=== PATIENT | female | born 1960 | race Caucasian/White ===

== ENCOUNTER → 2016-12-13 | Outpatient (CLI) | payer BC ==
--- NOTE | 2016-12-14 08:27 | MM ---
Reason for exam: screening (asymptomatic). Last mammogram was performed 1 year and 1 month ago. History: Patient is postmenopausal. Benign MG stereo VAD BX LT of the left breast, September 20, 2014. Took estrogen for 6 years. Took progesterone for 6 years. Physical Findings: A clinical breast exam by your physician is recommended on an annual basis and results should be correlated with mammographic findings. MG Screening Mammo w CAD Bilateral CC and MLO view(s) were taken. Prior study comparison: November 12, 2015, bilateral MG diagnostic mammo w CAD [facility]. September 11, 2014, left breast MG work up mamm w CAD LT. The breast tissue is heterogeneously dense. This may lower the sensitivity of mammography. Stable benign calcicications in the right breast. Previous mammotome biopsy in the left breast. No significant changes when compared with prior studies. ASSESSMENT: Benign, BI-RAD 2 RECOMMENDATION: Routine screening mammogram of both breasts in 1 year.
== END | disposition home or self-care (01) ==
LOC: RADMAMWWP 07:12
PROVIDERS: ATTEND Obstetrics & Gynecology
DX: Z12.31 Encounter for screening mammogram for malignant neoplasm of breast (principal)

== ENCOUNTER → 2018-01-13 | Outpatient (CLI) | payer BC ==
--- NOTE | 2018-01-17 08:46 | MM ---
Reason for exam: screening (asymptomatic). Last mammogram was performed 1 year and 1 month ago. History: Patient is postmenopausal. Benign MG stereo VAD BX LT of the left breast, September 20, 2014. Took estrogen for 6 years. Took progesterone for 6 years. Physical Findings: A clinical breast exam by your physician is recommended on an annual basis and results should be correlated with mammographic findings. MG Screening Mammo w CAD Bilateral CC and MLO view(s) were taken. Prior study comparison: December 13, 2016, bilateral MG screening mammo w CAD. November 12, 2015, bilateral MG diagnostic mammo w CAD [facility]. The breast tissue is heterogeneously dense. This may lower the sensitivity of mammography. Previous mammotome biopsy in the left breast. No significant changes when compared with prior studies. ASSESSMENT: Negative, BI-RAD 1 RECOMMENDATION: Routine screening mammogram of both breasts in 1 year.
== END | disposition home or self-care (01) ==
LOC: RADMAMWWP 07:14
PROVIDERS: ATTEND Obstetrics & Gynecology
DX: Z12.31 Encounter for screening mammogram for malignant neoplasm of breast (principal)
CPT/HCPCS: 77067

== ENCOUNTER → 2019-01-17 | Outpatient (CLI) | payer BC ==
--- NOTE | 2019-01-18 08:48 | MM ---
Reason for exam: screening (asymptomatic). Last mammogram was performed 1 year ago. History: Patient is postmenopausal. Benign MG stereo VAD BX LT of the left breast, September 20, 2014. Took estrogen for 6 years. Took progesterone for 6 years. Physical Findings: A clinical breast exam by your physician is recommended on an annual basis and results should be correlated with mammographic findings. MG Screening Mammo w CAD Bilateral CC and MLO view(s) were taken. Prior study comparison: January 13, 2018, bilateral MG screening mammo w CAD. December 13, 2016, bilateral MG screening mammo w CAD. The breast tissue is heterogeneously dense. This may lower the sensitivity of mammography. Stable benign calcifications. There is no discrete abnormality. No significant changes when compared with prior studies. ASSESSMENT: Benign, BI-RAD 2 RECOMMENDATION: Routine screening mammogram of both breasts in 1 year.
== END | disposition home or self-care (01) ==
LOC: RADMAMWWP 06:55
PROVIDERS: ATTEND Obstetrics & Gynecology
DX: Z12.31 Encounter for screening mammogram for malignant neoplasm of breast (principal)
CPT/HCPCS: 77067

== ENCOUNTER → 2020-04-29 | Outpatient (CLI) | payer BC ==
--- NOTE | 2020-05-05 11:43 | MM ---
Reason for exam: screening (asymptomatic). Last mammogram was performed 1 year and 3 months ago. History: Patient is postmenopausal. Benign MG stereo VAD BX LT of the left breast, September 20, 2014. Took estrogen for 6 years. Took progesterone for 6 years. Physical Findings: A clinical breast exam by your physician is recommended on an annual basis and results should be correlated with mammographic findings. MG Screening Mammo w CAD Bilateral CC and MLO view(s) were taken. Prior study comparison: January 17, 2019, bilateral MG screening mammo w CAD. January 13, 2018, bilateral MG screening mammo w CAD. The breast tissue is extremely dense which could obscure a lesion on mammography. Previous mammotome biopsy in the left breast. No significant changes when compared with prior studies. ASSESSMENT: Benign, BI-RAD 2 RECOMMENDATION: Routine screening mammogram of both breasts in 1 year.
== END | disposition home or self-care (01) ==
LOC: RADMAMWWP 07:12
PROVIDERS: ATTEND Obstetrics & Gynecology
DX: Z12.31 Encounter for screening mammogram for malignant neoplasm of breast (principal)
CPT/HCPCS: 77067

== ENCOUNTER 2020-11-11 07:16 | Day surgery (SDC) | payer BC ==
[2020-11-07 11:34] VITALS: BMI 22.4
[~2020-11-11 07:16] MED LIST: LACTATED RINGERS 1,000 ML IV SCH
[2020-11-11 07:38] VITALS: TEMP 97.3
[2020-11-11 07:45] LABS: Glucose,Whole Blood 116 mg/dL (75-99)
[2020-11-11] MEDS ORDERED: LIDOCAINE 1% INJ 10MG/ML (20 ML MDV) ONE (08:07)
[2020-11-11] MEDS ORDERED: PROPOFOL 10 MG/ML 20 ML VIAL IV ONE (08:07)
--- NOTE | 2020-11-11 08:12 | P.GSHP ---
History of Present Illness H&P Date: 11/11/20 Chief Complaint: Cancer screening Patient here today for colonoscopy. Last colonoscopy 7 years ago. That study was normal. No bowel complaints. No family history of colon cancer. Past Medical History Past Medical History: Coronary Artery Disease (CAD), Diabetes Mellitus, Hyperlipidemia, Hypertension Additional Past Medical History / Comment(s): Crestor caused liver and kidney failure. History of Any Multi-Drug Resistant Organisms: None Reported Past Surgical History: Breast Surgery, Coronary Bypass/CABG, Heart Catheterization, Hysterectomy Additional Past Surgical History / Comment(s): Quad CABG 2014. Lt breast biopsy Past Anesthesia/Blood Transfusion Reactions: No Reported Reaction Smoking Status: Never smoker Medications and Allergies Home Medications Medication Instructions Recorded Confirmed Type Aspirin [Roseau Aspirin EC] 81 mg PO DAILY 11/07/20 11/07/20 History Atorvastatin [Lipitor] 20 mg PO DAILY 11/07/20 11/07/20 History Evolocumab [Repatha Syringe] 140 mg SQ Q14D 11/07/20 11/07/20 History Ferrous Sulfate [Iron] 325 mg PO MOWEFR 11/07/20 11/07/20 History Losartan/Hydrochlorothiazide 1 tab PO DAILY 11/07/20 11/07/20 History [Losartan-Hctz 100-25 mg Tab] Metoprolol Tartrate [Lopressor] 50 mg PO BID 11/07/20 11/07/20 History Multivitamins, Thera [Multivitamin 1 tab PO DAILY 11/07/20 11/07/20 History (formulary)] metFORMIN HCL [Glucophage] 1,000 mg PO BID 11/07/20 11/07/20 History Allergies Allergy/AdvReac Type Severity Reaction Status Date / Time rosuvastatin [From Crestor] AdvReac caused Verified 11/07/20 11:38 liver & kidney failure Surgical - Exam Vital Signs Temp Pulse Resp BP Pulse Ox 97.3 F L 80 17 168/79 100 11/11/20 07:37 11/11/20 07:37 11/11/20 07:37 11/11/20 07:37 11/11/20 07:37 Physical exam: General: Well-developed, well-nourished HEENT: Normocephalic, sclerae nonicteric Abdomen: Nontender, nondistended Extremities: No edema Neuro: Alert and oriented Results - Labs Abnormal Lab Results - Last 24 Hours (Table) 11/11/20 Range/Units 07:41 POC Glucose (mg/dL) 116 H (75-99) mg/dL Assessment and Plan (1) Colon cancer screening Narrative/Plan: Will proceed with colonoscopy Current Visit: Yes Status: Acute Code(s): Z12.11 - ENCOUNTER FOR SCREENING FOR MALIGNANT NEOPLASM OF COLON SNOMED Code(s): 206868071
--- NOTE | 2020-11-11 08:32 | P.PCN ---
Date of Procedure: 11/11/20 Procedure(s) Performed: PREOPERATIVE DIAGNOSIS: Colon cancer screening POSTOPERATIVE DIAGNOSIS: Tortuous colon otherwise normal PROCEDURE: Colonoscopy ANESTHESIA: MAC SURGEON: Rolf Chandler M.D. SPECIMENS: None ENDOSCOPIC PROCEDURE: The patient was placed on the endoscopy table in the left decubitus position. The Olympus colonoscope was inserted into the anus and passed under direct visualization to the base of the cecum. The appendiceal orifice was visualized. From that point the scope was slowly withdrawn inspecting all surfaces carefully. There were no neoplastic inflammatory or polypoid lesions throughout the cecum, ascending, transverse, descending, sigmoid and rectum. There was no visible diverticulosis noted. The patient's colon was quite tortuous. Digital rectal examination was normal. The patient was taken to the recovery room in stable condition per anesthesia guidelines. RECOMMENDATIONS: Resume diet. Follow colonoscopy 10 years.
[2020-11-11 08:36] VITALS: RESP 16
[2020-11-11 08:50] VITALS: BP 93/57; PULSE 65
== END 2020-11-11 09:20 | disposition home or self-care (01) ==
LOC: ORWHC2ENDO 07:16
PROVIDERS: ATTEND Surgery
DX: Z12.11 Encounter for screening for malignant neoplasm of colon (principal); Q43.8 Other specified congenital malformations of intestine; I25.10 Atherosclerotic heart disease of native coronary artery without angina pectoris; E11.9 Type 2 diabetes mellitus without complications; E78.5 Hyperlipidemia, unspecified; I10 Essential (primary) hypertension; Z87.448 Personal history of other diseases of urinary system; Z87.19 Personal history of other diseases of the digestive system; Z98.890 Other specified postprocedural states; Z95.1 Presence of aortocoronary bypass graft; Z90.710 Acquired absence of both cervix and uterus; Z79.84 Long term (current) use of oral hypoglycemic drugs; Z79.82 Long term (current) use of aspirin; Z79.899 Other long term (current) drug therapy; Z88.8 Allergy status to other drugs, medicaments and biological substances
CPT/HCPCS: J2001; J2704; G0121

== ENCOUNTER → 2021-05-01 | Outpatient (CLI) | payer BC ==
--- NOTE | 2021-05-04 10:04 | MM ---
Reason for exam: screening (asymptomatic). Last mammogram was performed 1 year ago. History: Patient is postmenopausal. Benign MG stereo VAD BX LT of the left breast, September 20, 2014. Took estrogen for 6 years. Took progesterone for 6 years. Physical Findings: A clinical breast exam by your physician is recommended on an annual basis and results should be correlated with mammographic findings. MG Screening Mammo w CAD Bilateral CC and MLO view(s) were taken. Prior study comparison: April 29, 2020, bilateral MG screening mammo w CAD. January 17, 2019, bilateral MG screening mammo w CAD. The breast tissue is heterogeneously dense. This may lower the sensitivity of mammography. There are benign appearing vascular calcifications bilaterally. Previous mammotome biopsy in the left breast. There is no discrete abnormality. ASSESSMENT: Benign, BI-RAD 2 RECOMMENDATION: Routine screening mammogram of both breasts in 1 year.
== END | disposition home or self-care (01) ==
LOC: RADMAMWWP 07:31
PROVIDERS: ATTEND Obstetrics & Gynecology
DX: Z12.31 Encounter for screening mammogram for malignant neoplasm of breast (principal)
CPT/HCPCS: 77067

== ENCOUNTER → 2022-05-04 | Outpatient (CLI) | payer OTHER ==
--- NOTE | 2022-05-05 17:11 | MM ---
Reason for Exam: Screening (asymptomatic). Last mammogram was performed 1 year(s) and 1 month(s) ago. Patient History: Menarche at age 11. First Full-Term at age 20. Hysterectomy at age 41. Postmenopausal. Patient used Estrogen for 6 years. Patient used Progesterone for 6 years. 09/20/2014, Benign Core Biopsy on the left side. Risk Values: Kimmie 5 year model risk: 1.7%. NCI Lifetime model risk: 7.1%. Prior Study Comparison: 01/17/2019 Bilateral Screening Mammogram, [facility]. 04/29/2020 Bilateral Screening Mammogram, [facility]. 05/01/2021 Bilateral Screening Mammogram, [facility]. Tissue Density: The breast tissue is heterogeneously dense. This may lower the sensitivity of mammography. Findings: Analyzed By CAD. Pattern is symmetrical. Benign vascular calcifications present bilaterally. A core markers within the left breast. No suspicious groups of microcalcifications, spiculated or lobular masses, architectural distortion or other secondary signs of malignancy are mammographically apparent. Overall Assessment: Benign, BI-RAD 2 Management: Screening Mammogram of both breasts in 1 year. A negative mammogram report should not preclude additional follow up of suspicious palpable abnormalities. Patient should continue monthly self breast exam. A clinical breast exam by your physician is recommended on an annual basis and results should be correlated with mammographic findings. Electronically signed and approved by: Clarence Cool D.O. Radiologis
== END | disposition home or self-care (01) ==
LOC: RADMAMWWP 07:53
PROVIDERS: ATTEND Obstetrics & Gynecology
DX: Z12.31 Encounter for screening mammogram for malignant neoplasm of breast (principal); Z78.0 Asymptomatic menopausal state; Z98.890 Other specified postprocedural states
CPT/HCPCS: 77067

== ENCOUNTER → 2023-05-17 | Outpatient (CLI) | payer OTHER ==
--- NOTE | 2023-05-18 19:42 | MM ---
Reason for Exam: Screening (asymptomatic). Last screening mammogram was performed 12 month(s) ago. Patient History: Menarche at age 11. First Full-Term at age 20. Hysterectomy at age 41. Postmenopausal. Patient used Estrogen for 6 years. Patient used Progesterone for 6 years. 09/20/2014, Benign Core Biopsy on the left side. Risk Values: Kimmie 5 year model risk: 1.7%. NCI Lifetime model risk: 6.9%. Prior Study Comparison: 04/29/2020 Bilateral Screening Mammogram, [facility]. 05/01/2021 Bilateral Screening Mammogram, [facility]. 05/04/2022 Bilateral MG screening mammo w CAD, [facility]. Tissue Density: The breast tissue is heterogeneously dense. This may lower the sensitivity of mammography. Findings: Analyzed By CAD. Microclip left breast from prior biopsy. Subareolar asymmetric density left cc view is more defined. This may represent superimposition shadow but further evaluation is recommended. Otherwise, no significant change. Overall Assessment: Incomplete: need additional imaging evaluation, BI-RAD 0 Management: Special View Mammogram of the left breast. Diagnostic Breast Ultrasound of the left breast. Additional views to include spot 3-D CC, 3-D CC rolled, and 3-D lateral views. Targeted left breast ultrasound if any persisting abnormality. [facility] will attempt to contact patient to return for supplemental views and ultrasound if indicated. Electronically signed and approved by: Lex Mejia M.D. Radiologist
== END | disposition home or self-care (01) ==
LOC: RADMAMWWP 07:20
PROVIDERS: ATTEND Obstetrics & Gynecology
DX: Z12.31 Encounter for screening mammogram for malignant neoplasm of breast (principal); Z78.0 Asymptomatic menopausal state
CPT/HCPCS: 77067

== ENCOUNTER → 2023-05-25 | Outpatient (CLI) | payer OTHER ==
--- NOTE | 2023-05-25 09:40 | MM ---
Reason for Exam: Additional evaluation requested from abnormal screening. Last screening mammogram was performed less than 1 month ago. Patient History: Menarche at age 11. First Full-Term at age 20. Hysterectomy at age 41. Postmenopausal. Patient used Estrogen for 6 years. Patient used Progesterone for 6 years. 09/20/2014, Benign Core Biopsy on the left side. Risk Values: Kimmie 5 year model risk: 1.7%. NCI Lifetime model risk: 6.9%. Prior Study Comparison: 05/01/2021 Bilateral Screening Mammogram, [facility]. 05/04/2022 Bilateral MG screening mammo w CAD, [facility]. 05/17/2023 Bilateral MG screening mammo w CAD, [facility]. Tissue Density: Left: The breast tissue is heterogeneously dense. This may lower the sensitivity of mammography. Findings: Analyzed By CAD. Central asymmetric density on the CC view does not persist on additional views. Findings compatible with superimposition shadow. Overall Assessment: Benign, BI-RAD 2 Management: Screening Mammogram of both breasts in 1 year. Results were given to the patient verbally at the time of exam. Patient should continue monthly self-breast exams. A clinical breast exam by your physician is recommended on an annual basis. This exam should not preclude additional follow-up of suspicious palpable abnormalities. Note on Kimmie scores and lifetime risk: 1. A Kimmie score greater than 3% is considered moderate risk. If this is the case, consider specialist referral to assess eligibility for a risk reducing agent. 2. If overall lifetime risk for the development of breast cancer is 20% or higher, the patient may qualify for future screening with alternating mammogram and breast MRI. Electronically signed and approved by: eLx Mejia M.D. Radiologist
== END | disposition home or self-care (01) ==
LOC: RADMAMWWP 08:27
PROVIDERS: ATTEND Obstetrics & Gynecology
DX: R92.8 Other abnormal and inconclusive findings on diagnostic imaging of breast (principal); Z90.710 Acquired absence of both cervix and uterus; Z78.0 Asymptomatic menopausal state
CPT/HCPCS: 77061; 77065

== ENCOUNTER → 2024-05-29 | Outpatient (CLI) | payer MEDICARE, BC ==
--- NOTE | 2024-05-29 08:43 | MM ---
Reason for Exam: Screening (asymptomatic). Last screening mammogram was performed 12 month(s) ago. Patient History: Menarche at age 11. First Full-Term at age 20. Hysterectomy at age 41. Postmenopausal. Patient used Estrogen for 6 years. Patient used Progesterone for 6 years. 09/20/2014, Benign Core Biopsy on the left side. Risk Values: Kimmie 5 year model risk: 1.8%. NCI Lifetime model risk: 6.6%. Prior Study Comparison: 05/04/2022 Bilateral MG screening mammo w CAD, [facility]. 05/17/2023 Bilateral MG screening mammo w CAD, [facility]. 05/25/2023 Left MG 3D work up w/cad , [facility]. Tissue Density: The breasts are heterogeneously dense, which may obscure small masses. Findings: Analyzed By CAD. Left breast biopsy clip. Right breast: There is no suspicious group of microcalcifications or new suspicious mass. Left breast: There is no suspicious group of microcalcifications or new suspicious mass. Overall Assessment: Negative, BI-RAD 1 Management: Screening Mammogram of both breasts in [address] [facility] will attempt to contact patient to return for supplemental views and ultrasound if indicated. Patient should continue monthly self-breast exams. A clinical breast exam by your physician is recommended on an annual basis. This exam should not preclude additional follow-up of suspicious palpable abnormalities. Note on Kimmie scores and lifetime risk: 1. A Kimmie score greater than 3% is considered moderate risk. If this is the case, consider specialist referral to assess eligibility for a risk reducing agent. 2. If overall lifetime risk for the development of breast cancer is 20% or higher, the patient may qualify for future screening with alternating mammogram and breast MRI. [facility], , 05/29/2024 8:40 AM. Electronically signed and approved by: Raza Nazario DO
== END | disposition home or self-care (01) ==
LOC: RADMAMWWP 07:00
PROVIDERS: ATTEND Family Medicine
DX: Z12.31 Encounter for screening mammogram for malignant neoplasm of breast (principal); R92.333 Mammographic heterogeneous density, bilateral breasts; Z78.0 Asymptomatic menopausal state
CPT/HCPCS: 77067